=== PATIENT | male | born 1970 | race Caucasian/White ===

== ENCOUNTER 2017-01-16 21:14 | Emergency (ER) | payer MEDICAID ==
[~2017-01-16] VITALS: Ht 180.3 cm; Wt 86.2 kg
--- NOTE | 2017-01-16 22:02 | NUR ---
CALLED FOR TRIAGE; NOT IN LOBBY
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
--- NOTE | 2017-01-16 22:16 | NUR ---
DR. BUTCHER AT BEDSIDE FOR EVAL.
[2017-01-16 23:07] VITALS: BP 128/76
== END 2017-01-16 23:14 | disposition home or self-care (01) ==
LOC: ER 21:21
DX: S00.81XA Abrasion of other part of head, initial encounter (principal); F32.9 Major depressive disorder, single episode, unspecified; F17.200 Nicotine dependence, unspecified, uncomplicated; Z88.1 Allergy status to other antibiotic agents; Z88.0 Allergy status to penicillin; W22.8XXA Striking against or struck by other objects, initial encounter; Y92.89 Other specified places as the place of occurrence of the external cause; Y93.89 Activity, other specified; Y99.8 Other external cause status
CPT/HCPCS: 70450-TC; A4606; Z7610